=== PATIENT | male | born 2000 | race Caucasian/White ===

== ENCOUNTER 2023-12-06 12:52 | Emergency (ER) | payer OTHER, SELFPAY ==
[2023-12-06 12:59] VITALS: BP 134/82; PULSE 82; TEMP 36.9; O2SAT 97; BMI 23.1
--- NOTE | 2023-12-06 13:06 | XR_ITS ---
[facility] [place] [id number] Patient Name: COY TRACEY MRN: [id number] date: 2000 Sex: M Assigned Patient Location: ER Current Patient Location: ER Accession/Order Number: [id number] Exam Date: 12/06/2023 13:20 Report Date: 12/06/2023 15:12 At the request of: GABRIEL YOUNG Procedure: XR hand RT min 3V EXAM: XR hand RT min 3V TECHNIQUE: AP, lateral and oblique views right hand HISTORY: edematous and painful to touch COMPARISON: None. FINDINGS: No acute fracture or dislocation. Soft tissue swelling of the dorsum of the hand. No arthritic changes. XR/XR hand RT min 3V IMPRESSION: No fracture Electronically authenticated by: BREN DUBOSE Date: 12/06/2023 15:12
--- NOTE | 2023-12-06 17:26 | ED.GENADUL1 ---
HPI HPI - General Adult General Chief complaint: Extremity Injury, Upper Stated complaint: Upper Injury Time Seen by Provider: 12/06/23 15:19 Source: patient Mode of arrival: walk-in Limitations: no limitations History of Present Illness HPI narrative: The patient presenting to us after he had punched a wall yesterday, he is complaining of right hand pain No other injuries Related Data Previous Rx's ?Medication ?Instructions ?Recorded ibuprofen 600 mg tablet 600 mg PO TID PRN pain #7 tabs 12/06/23 Allergies Allergy/AdvReac Type Severity Reaction Status Date / Time No Known Drug Allergies Allergy Verified 12/06/23 13:02 Opioid HPI Opioid Management Most Recent Opioid Data: No Data to Display Review of Systems ROS Status of ROS 10 or more systems reviewed and unremarkable except as noted in history and below PFSH PFSH Social History Little interest or pleasure in doing things: not at all Feeling down, depressed, or hopeless: not at all Exam Narrative Exam Narrative: Nurses notes and vital signs reviewed and patient is not hypoxic. Right upper extremity: There is significant edema of the right hand mostly toward the metacarpophalangeal joints and abrasion on multiple levels but no open wounds or any deep lacerations, there is full range of movement preserved General: Well-appearing and in no apparent distress. Skin: Warm, dry, no pallor noted. No rash. Head: Normocephalic, atraumatic. Neck: Supple, non-tender. Eye: Pupils are equal, round and EOMI. No scleral icterus. Ears, Nose, Mouth, and Throat: TM are clear, no nasal mucosal hypertrophy. Oral mucosa is moist, no posterior oropharynx erythema, uvula is mid-line Cardiovascular: Regular Rate and Rhythm without murmur, gallop or rub. Respiratory: No accessory muscle use or respiratory distress. Lungs are clear to auscultation, no wheezing, rales or rhonchi Chest Wall: no tenderness Back: No midline thoracic or lumbar vertebral tenderness. No CVA tenderness Musculoskeletal: normal ROM, no calf or popliteal tenderness, no lower extremity edema/swelling GI: Abdomen is soft, non-distended. Normal bowel sounds. No masses appreciated. No tenderness to palpation. No rebound, guarding, or rigidity noted. Neurological: A&O x4. No cranial nerve dysfunction observed. No truncal ataxia. Moves all extremities. Sensation intact. Psychiatric: Cooperative and interactive. Normal mood and affect. Constitutional Vital Signs, click to edit/add: Last Vital Signs Temp 98.4 F 12/06/23 12:59 Pulse 82 12/06/23 12:59 Resp 16 12/06/23 12:59 BP 134/82 12/06/23 12:59 Pulse Ox 97 12/06/23 12:59 O2 Del Method Room Air 12/06/23 12:59 Course Vital Signs Vital signs: Vital Signs Temperature 98.4 F 12/06/23 12:59 Pulse Rate 82 12/06/23 12:59 Respiratory Rate 16 12/06/23 12:59 Blood Pressure 134/82 12/06/23 12:59 Pulse Oximetry 97 12/06/23 12:59 Oxygen Delivery Method Room Air 12/06/23 12:59 Temperature 98.4 F 12/06/23 12:59 Pulse Rate 82 12/06/23 12:59 Respiratory Rate 16 12/06/23 12:59 Blood Pressure 134/82 12/06/23 12:59 Pulse Oximetry 97 12/06/23 12:59 Oxygen Delivery Method Room Air 12/06/23 12:59 Medical Decision Making [facility] Narrative Medical decision making narrative: X-ray of the patient's right hand showed no acute pathology The patient will be treated supportively with Wily wrap and ibuprofen The patient is to follow up with primary care physician in next 2-3 days or to return to the emergency department should any of the signs or symptoms worsen or new symptoms develop. The patient agrees with the following Diagnosis and Treatment plan and the patient will be discharged home. The patient to come back to the ER or follow-up with his primary care doctor within a week for another x-ray in case the pain continues after 7 days Discharge Plan Discharge Chief Complaint: Extremity Injury, Upper Clinical Impression: Contusion of hand Patient Disposition: Home, Self-Care Time of Disposition Decision: 16:12 Condition: Good Prescriptions / Home Meds: New ibuprofen 600 mg tablet 600 mg PO TID PRN (Reason: pain) Qty: 7 0RF Print Language: Hebrew Instructions: Contusion in Adults (ED) Referrals: Physician,Non-Staff, MD [Primary Care Provider] - 1 week Discharge Date/Time: 12/06/23 16:25
== END 2023-12-06 16:25 | disposition home or self-care (01) ==
PROVIDERS: Emergency Provider Emergency Medicine
DX: S60.221A Contusion of right hand, initial encounter (principal); W22.01XA Walked into wall, initial encounter
CPT/HCPCS: 73130; 99283

== ENCOUNTER 2024-03-15 15:15 | Emergency (ER) | payer OTHER, SELFPAY ==
[2024-03-15 15:22] VITALS: BP 140/66; PULSE 89; TEMP 36.8; O2SAT 98; BMI 24.4
--- NOTE | 2024-03-15 15:27 | ED.GENADUL1 ---
HPI HPI - General Adult General Chief complaint: Skin/Abscess/Foreign Body Stated complaint: LUMP ON NECK Time Seen by Provider: 03/15/24 15:24 Source: patient Mode of arrival: walk-in History of Present Illness HPI narrative: 23-year-old male presents for lump on his neck. He noticed it yesterday and there was no injury. Its on the left side of his neck above his collarbone. He has had no wounds or injuries to his arm or in the head and neck area. He has not noticed any similar findings elsewhere on his body. He has not had a fever or sore throat. Related Data Allergies Allergy/AdvReac Type Severity Reaction Status Date / Time No Known Drug Allergies Allergy Verified 03/15/24 15:22 Opioid HPI Opioid Management Most Recent Opioid Data: No Data to Display Review of Systems ROS Narrative A ten point review of systems is negative except as noted above. PFSH PFSH Social History Little interest or pleasure in doing things: not at all Feeling down, depressed, or hopeless: not at all Exam Narrative Exam Narrative: Nurses note and vital signs reviewed and patient is not hypoxic. General: The patient appears well and in no apparent distress. Patient is resting comfortably on cart. Skin: Warm, dry, no pallor noted. There is no rash noted. Head: Normocephalic, atraumatic Eye: Normal conjunctiva, no drainage Ears, Nose, Mouth, and Throat: oral mucosa is moist. Nares patent. There is a palpable mass slightly less than 1 cm in size on the left side of his lower neck, above the clavicle. It is mobile and not fluctuant. There is no overlying erythema or drainage. He does not have any other similar findings elsewhere on his neck. Cardiovascular: Regular Rate and Rhythm Respiratory: Patient is in no distress, no accessory muscle use, lungs are clear to auscultation, no wheezing, rales or rhonchi Back: non-tender GI: Soft and nontender Musculoskeletal: No joint swelling Neurological: A&O, normal speech Psychiatric: Cooperative Constitutional Vital Signs, click to edit/add: Last Vital Signs Temp 98.3 F 03/15/24 15:22 Pulse 89 03/15/24 15:22 Resp 16 03/15/24 15:22 BP 140/66 03/15/24 15:22 Pulse Ox 98 12/16/24 15:22 O2 Del Method Room Air 12/16/24 15:22 Course Vital Signs Vital signs: Vital Signs Temperature 98.3 F 03/15/24 15:22 Pulse Rate 89 03/15/24 15:22 Respiratory Rate 16 03/15/24 15:22 Blood Pressure 140/66 03/15/24 15:22 Pulse Oximetry 98 03/15/24 15:22 Oxygen Delivery Method Room Air 03/15/24 15:22 Temperature 98.3 F 03/15/24 15:22 Pulse Rate 89 03/15/24 15:22 Respiratory Rate 16 03/15/24 15:22 Blood Pressure 140/66 03/15/24 15:22 Pulse Oximetry 98 03/15/24 15:22 Oxygen Delivery Method Room Air 03/15/24 15:22 Medical Decision Making MDM Narrative Medical decision making narrative: Blood work is normal. My clinical impression is that the patient has an enlarged lymph node. He will follow-up with his PCP if it does not resolve in a few weeks or if it gets larger. Treatment diagnosis and follow-up were discussed with the patient. I have no clinical suspicion of an infection. Differential Diagnosis Differential Diagnosis: Cyst, lymph node, abscess Lab Data Lab results reviewed: Yes I reviewed the patient's lab results Labs: Lab Results 03/15/24 Range/Units 16:00 WBC 3.6 L (4.0-11.0) 10^3/uL RBC 4.86 (4.70-6.10) 10^6/uL Hgb 14.7 (14.0-18.0) g/dL Hct 42.1 (42.0-54.0) % MCV 86.6 (80.0-94.0) fL MCH 30.2 (25.9-34.0) pg MCHC 34.9 (29.9-35.2) g/dL RDW 11.8 (11.0-15.0) % Plt Count 113 L (150-450) 10^3/uL MPV 10.9 (9.5-13.5) fL Sodium 142 (136-145) mmol/L Potassium 4.3 (3.5-5.1) mmol/L Chloride 105 (98-107) mmol/L Carbon Dioxide 29.1 (21.0-32.0) mmol/L Anion Gap 12.2 BUN 14.0 (7.0-18.0) mg/dL Creatinine 1.17 (0.70-1.30) mg/dL Est GFR ( Amer) >60 (>=60 mL/min/1.73m^2) Est GFR (Non-Af Amer) >60 (>=60 mL/min/1.73m^2) BUN/Creatinine Ratio 12.0 Glucose 91 (74-106) mg/dL Calcium 8.9 (8.5-10.1) mg/dL Discharge Plan Discharge Chief Complaint: Skin/Abscess/Foreign Body Clinical Impression: Lymph nodes enlarged Patient Disposition: Home, Self-Care Time of Disposition Decision: 16:39 Condition: Good Mode of Transportation: Private Vehicle Print Language: Vietnamese Instructions: Lymphadenopathy (ED) Referrals: Physician,Non-Staff, MD [Primary Care Provider] - 1 week
[2024-03-15 16:20] LABS: Hematocrit 42.1 % (42.0-54.0); Hemoglobin 14.7 g/dL (14.0-18.0); Mean Corpuscular HGB Conc 34.9 g/dL (29.9-35.2); Mean Corpuscular Hemoglobin 30.2 pg (25.9-34.0); Mean Corpuscular Volume 86.6 fL (80.0-94.0); Mean Platelet Volume 10.9 fL (9.5-13.5); Platelet Count 113 10^3/uL (150-450); Red Blood Count 4.86 10^6/uL (4.70-6.10); Red Cell Distribution Width 11.8 % (11.0-15.0); White Blood Count 3.6 10^3/uL (4.0-11.0)
[2024-03-15 16:25] LABS: Anion Gap 12.2; Calcium 8.9 mg/dL (8.5-10.1); Carbon Dioxide 29.1 mmol/L (21.0-32.0); Chloride 105 mmol/L (98-107); Estimated GFR (African America >60 (>=60 mL/min/1.73m^2); Estimated GFR (Non-African Ame >60 (>=60 mL/min/1.73m^2); Glucose 91 mg/dL (74-106); Potassium 4.3 mmol/L (3.5-5.1); Sodium 142 mmol/L (136-145)
[2024-03-15 16:49] LABS: Atypical Lymphocytes Abs Man 0.18; Band Neutrophils Absolute 0.2 10^3/uL (0.0-0.3); Lymphocytes Absolute Manual 0.97 10^3/uL (1.20-3.80); Monocytes Absolute Manual 0.39 10^3/uL (0.30-0.80); Segmented Neut Absolute Manual 1.87 10^3/uL (1.4-6.5)
== END 2024-03-15 16:47 | disposition home or self-care (01) ==
PROVIDERS: Emergency Provider Emergency Medicine
DX: R59.0 Localized enlarged lymph nodes (principal)
CPT/HCPCS: 36415; 80048; 85007; 85027; 99283

== ENCOUNTER 2024-04-08 07:46 | Outpatient (RCR) | payer OTHER, SELFPAY ==
[2024-04-08 16:07] LABS: Basophils Percent Auto 0.2 % (0.2-2.0); Eosinophils Percent Auto 0.9 % (0.9-7.0); Hemoglobin 14.6 g/dL (14.0-18.0); Immature Granulocytes Abs Auto 0.01 10^3/uL (0.00-0.03); Immature Granulocytes Pct Auto 0.2 % (0.0-0.5); Lymphocytes Absolute Auto 1.7 10^3/uL (1.2-3.8); Lymphocytes Percent Auto 39.8 % (20.5-60.0); Mean Corpuscular Hemoglobin 29.4 pg (25.9-34.0); Mean Corpuscular Volume 86.5 fL (80.0-94.0); Monocytes Absolute Auto 0.4 10^3/uL (0.3-0.8); Monocytes Percent Auto 8.5 % (1.7-12.0); Neutrophils Absolute Auto 2.2 10^3/uL (1.4-6.5); Neutrophils Percent Auto 50.4 % (43.0-75.0); Platelet Count 187 10^3/uL (150-450); Red Blood Count 4.97 10^6/uL (4.70-6.10); Red Cell Distribution Width 12.6 % (11.0-15.0); White Blood Count 4.4 10^3/uL (4.0-11.0)
[2024-04-08 16:30] LABS: Erythrocyte Sedimentation Rate 2 mm/hr (<=15)
[2024-04-08 16:36] LABS: C Reactive Protein <0.50 mg/dL (<=0.50); Lactate Dehydrogenase 229 U/L (85-227)
[2024-04-12 13:08] LABS: ANA Direct Negative (Negative)
[2024-04-14 10:12] LABS: Immunoglobulin A, Qn, Serum 309 mg/dL (90-386); Immunoglobulin E, Total 295 IU/mL (6-495); Immunoglobulin G, Qn, Serum 1372 mg/dL (603-1613); Immunoglobulin M, Qn, Serum 189 mg/dL (20-172)
== END 2024-04-09 07:54 | disposition home or self-care (01) ==
LOC: HEMC 07:46
PROVIDERS: Visit Provider Internal Medicine Hematology & Oncology
DX: D72.819 Decreased white blood cell count, unspecified (principal); D69.6 Thrombocytopenia, unspecified; R59.0 Localized enlarged lymph nodes; D72.820 Lymphocytosis (symptomatic); F17.290 Nicotine dependence, other tobacco product, uncomplicated
CPT/HCPCS: 36415; 82784; 82785; 83615; 85025; 85652; 86038; 86140; 88184; 88185; 99999; G0463